=== PATIENT | female | born 1930 | race Caucasian/White ===

== ENCOUNTER → 2016-07-23 | Outpatient (CLI) | payer MEDICARE, BC ==
--- NOTE | 2016-07-26 15:24 | XR ---
EXAMINATION TYPE: XR lumbosacral spine min 4V DATE OF EXAM: 07/23/2016 12:14 PM CLINICAL HISTORY: pain COMPARISON: 10/14/2014 TECHNIQUE: Frontal, lateral, and oblique images of the lumbar spine are obtained. FINDINGS: Grade 1 anterolisthesis L4 and L5 measuring 7.1 mm with grade 2 anterolisthesis L5 on S1 me asuring 1.0 cm. Severe degenerative change of the facet joints. Severe degenerative narrowing involvi ng the L5-S1 disc space with moderate narrowing at the remaining levels. Mild loss of height involvin g L2 relative to the prior study of uncertain age and/or etiology. IMPRESSION: 1. Mild loss of height involving L2 vertebral segment of uncertain age and/or etiology. 2. Progressive degenerative changes.
== END | disposition home or self-care (01) ==
LOC: RADXRYALE 11:58
PROVIDERS: ATTEND Family Medicine
DX: M47.817 Spondylosis without myelopathy or radiculopathy, lumbosacral region (principal); R29.890 Loss of height
CPT/HCPCS: 72110

== ENCOUNTER → 2016-08-06 | Outpatient (CLI) | payer MEDICARE, BC ==
--- NOTE | 2016-08-06 16:22 | MR ---
EXAMINATION TYPE: MR lumbar spine wo con DATE OF EXAM: 08/06/2016 3:58 PM COMPARISON: NONE HISTORY: 86-year-old female with low back pain, Spondylolisthesis TECHNIQUE: Multiplanar, multisequence images of the lumbar spine were acquired. Findings: There is a fatty matrix hemangioma within L3 and L4 vertebral bodies. Some degenerative endplate fox ges are seen, Modic type II fatty endplate change at L5-S1 associated with moderate to severe degener ative disc disease characterized by disc space narrowing, disc desiccation, disc vacuum, and bulging. There is a band of low signal along the inferior L2 endplate with minimal overall vertebral body heig ht loss. No significant prevertebral paravertebral soft tissue abnormality at this level. Otherwise, vertebral body heights are maintained. Conus medullaris is normal. There is grade 2 anterolisthesis at L5-S1. Additional grade 1 anterolisthesis at L4-L5. Hypertrophic facet arthropathy throughout especially the mid to lower lumbar spine. Additional moderate multilevel degenerative disc disease with desiccated, narrowed, and bulging discs . At the T11-T12, mild osteophytic disc bulge without significant canal or foraminal stenosis. At T12-L1, mild diffuse disc bulge and mild facet degenerative change. Changes result in no significa nt spinal canal or neuroforaminal stenosis. At L1-L2, there is diffuse disc bulge and facet degenerative change. There is mild impression onto th e ventral thecal sac and moderate bilateral neuroforaminal stenosis. No significant spinal canal sten osis. At L2-L3, there is diffuse disc bulge and facet degenerative change. Changes result in mild ventral i mpression on the thecal sac without significant spinal canal stenosis. There is mild left and moderat e right neuroforaminal stenosis. At L3-L4, there is diffuse bulging disc with ligamentum flavum thickening and facet degenerative fox ge. Changes result in mild left greater than right neuroforaminal stenosis without significant spinal canal stenosis. At L4-L5, there is hypertrophic facet degenerative change with disc bulging, ligamentum flavum thicke heavenly, and grade 1 anterolisthesis. Changes result in mild bilateral neuroforaminal stenosis without s ignificant spinal canal stenosis. At L5-S1, there is severe hypertrophic facet degenerative change with grade 2 anterolisthesis, ligame ntum flavum thickening, and bulging disc. Changes result in mild left and moderate right neuroforamin al stenosis without significant spinal canal stenosis. Bilateral L5 pars defects are favored though M RI lacks detail for assessment of the bony anatomy. Nonspecific T2 hyperintense cystic area within the S2 vertebra. There is a T2 hyperintense lesion measuring 2.5 cm in the region of the caudate lobe of the liver. Ad ditional exophytic 1 cm T2 hyperintense lesion lateral right kidney. Both of these suggests cysts. IMPRESSION: 1. Grade 2 anterolisthesis at L5-S1 associated with hypertrophic facet arthropathy, ligamentum flavum thickening, and degenerative disc disease. The lack of significant spinal canal stenosis at this lev el favors anterolisthesis secondary to bilateral L5 pars defects. However, MRI lacks detail for asses sment of the bony anatomy. CT can be considered if this would determine potential further surgical ma nagement. 2. A band of low signal across the L2 inferior endplate. There is slight overall vertebral body heigh t loss. Given the lack of any significant prevertebral/paravertebral soft tissue abnormality, finding s may reflect a subacute endplate fracture. 3. Degenerative grade 1 anterolisthesis at L4-L5. 4. Moderate multilevel degenerative disc disease. Additional hypertrophic facet arthropathy and level s of ligamentum flavum thickening. 5. Changes result in variable mild neuroforaminal stenoses, moderate on both sides at L1-L2, on the r ight at L2-L3, and on the right at L5-S1. No significant spinal canal stenosis.
== END | disposition home or self-care (01) ==
LOC: RADMRIMAIN 15:03
PROVIDERS: ATTEND Family Medicine
DX: M99.73 Connective tissue and disc stenosis of intervertebral foramina of lumbar region (principal); M43.17 Spondylolisthesis, lumbosacral region; M51.36 Other intervertebral disc degeneration, lumbar region; M46.96 Unspecified inflammatory spondylopathy, lumbar region
CPT/HCPCS: 72148

== ENCOUNTER → 2017-08-18 | Outpatient (CLI) | payer MEDICARE, BC ==
--- NOTE | 2017-08-18 16:35 | XR ---
EXAMINATION TYPE: XR chest 2V DATE OF EXAM: 08/18/2017 COMPARISON:03/29/2016 INDICATION: Screening for detention placement TECHNIQUE: Frontal and lateral views of the chest are obtained. FINDINGS: The heart size is normal. The pulmonary vasculature is normal. The lungs are clear. There is hyperinflation flattening the diaphragms compatible COPD. IMPRESSION: 1. No acute pulmonary process. 2. COPD
== END | disposition home or self-care (01) ==
LOC: RADXRYALE 15:51
PROVIDERS: ATTEND Family Medicine
DX: Z11.1 Encounter for screening for respiratory tuberculosis (principal); J44.9 Chronic obstructive pulmonary disease, unspecified
CPT/HCPCS: 71046

== ENCOUNTER → 2020-01-29 | Outpatient (CLI) | payer MEDICARE, BC ==
--- NOTE | 2020-01-29 15:56 | XR ---
EXAMINATION TYPE: XR chest 2V DATE OF EXAM: 01/29/2020 COMPARISON: 08/18/2017 INDICATION: Screening routine physical TECHNIQUE: Frontal and lateral views of the chest are obtained. FINDINGS: The heart size is normal. The pulmonary vasculature is normal. The lungs are clear. There is hyperinflation flattening the diaphragms compatible COPD. IMPRESSION: 1. No acute pulmonary process.
== END | disposition home or self-care (01) ==
LOC: RADXRYALE 15:34
PROVIDERS: ATTEND Physician Assistant Medical
DX: Z11.1 Encounter for screening for respiratory tuberculosis (principal)
CPT/HCPCS: 71046

== ENCOUNTER → 2020-03-25 | Outpatient (CLI) | payer MEDICARE, BC ==
--- NOTE | 2020-03-25 12:11 | XR ---
EXAMINATION TYPE: XR chest 2V DATE OF EXAM: 03/25/2020 COMPARISON: 01/29/2020 INDICATION: Short of breath TECHNIQUE: Frontal and lateral views of the chest are obtained. FINDINGS: The heart size is normal. The pulmonary vasculature is normal. There is tortuosity of the aorta. The lungs are clear. Some hyperinflation flattening the diaphragms may be present. Correlate for emp hysematous change. IMPRESSION: 1. No acute pulmonary process.
== END | disposition home or self-care (01) ==
LOC: RADXRYALE 11:55
PROVIDERS: ATTEND Family Medicine
DX: R06.02 Shortness of breath (principal)
CPT/HCPCS: 71046